=== PATIENT | male | born 1995 | race Hispanic/Latino ===

== ENCOUNTER 2019-11-13 11:53 | Emergency (ER) | payer OTHER | END 2019-11-13 12:16 | disposition home or self-care (01) | LOC: ERS 11:53 | DX: Z20.828 Contact with and (suspected) exposure to other viral communicable diseases (principal) | CPT/HCPCS: 99281 ==

== ENCOUNTER 2019-11-18 12:04 | Emergency (ER) | payer OTHER ==
[2019-11-18 17:21] LABS: SARS-CoV-2 MS2 Positive; SARS-CoV-2 N Gene Positive; SARS-CoV-2 S Gene Positive; SARS-CoV-2 orf1ab Positive
== END 2019-11-18 12:37 | disposition home or self-care (01) ==
LOC: ERS 12:04
DX: U07.1 COVID-19 (principal); J06.9 Acute upper respiratory infection, unspecified; F17.200 Nicotine dependence, unspecified, uncomplicated
CPT/HCPCS: 87635; 99283; U0003